=== PATIENT | female | born 1990 | race Caucasian/White ===

== ENCOUNTER 2021-08-15 19:02 | Emergency (ER) | payer SELFPAY ==
[~2021-08-15] VITALS: Ht 157.5 cm; Wt 70.8 kg
[2021-08-15 19:04] VITALS: BP 147/103
--- NOTE | 2021-08-15 19:25 | NUR ---
30 y/o female bib family, c/o HEAD PAIN S/P FALL EARLIER THIS EVENING. PATIENT PRESENTS TO ED WITH HEMATOMA IN OCCIPITAL AREA. PT STATES SHE HAD HAD SOME ALCOHOL AND PLAYING WITH FRIENDS, SHE DID A TRUST FALL AND FELL TO THE FLOOR,; SHE WAS TOLD SHE MIGHT HAVE HAD A SEIZURE, UNRESPONSIVE FOR UNK TIME, AND VOMITED BLOOD. PUPILS ARE PERRL. SKIN IS PINK/WARM/DRY; AAOX4 WITH EVEN AND STEADY GAIT; LUNGS CLEAR BL; HR EVEN AND REGULAR; PATIENT STATES PAIN OF 10/10 AT THIS TIME; VSS; PATIENT POSITIONED FOR COMFORT; HOB ELEVATED; BEDRAILS UP X1; BED DOWN. ER MD MADE AWARE OF PT STATUS. DENIES HX, ALLERGIES, OR MEDS
--- NOTE | 2021-08-15 19:50 | NUR ---
ERMD EXAMINING PT
--- NOTE | 2021-08-15 19:52 | NUR ---
BO COBIAN AT BEDSIDE EXAMINING PT. PT EXPRESSED A DESIRE TO AMA.
[2021-08-15 20:02] VITALS: BP 147/103
--- NOTE | 2021-08-15 20:04 | NUR ---
Patient does not wish to proceed with medical care recommended by DR OLIVAREZ. Patient given information related to possible complications, up to and including , which could occur as a result of leaving hospital at this time. Patient verbalizes understanding of risks involved leaving against medical advice. Patient has signed AMA form. VSS.
== END 2021-08-15 20:00 | disposition left against medical advice (07) ==
LOC: MED 19:02
DX: R56.9 Unspecified convulsions (principal); K92.0 Hematemesis
CPT/HCPCS: 99281